=== PATIENT | female | born 1995 ===

== ENCOUNTER 2018-07-08 21:43 | Inpatient (IN) ==
[2018-07-08 22:19] LABS: Apearance,Urine CLEAR (Clear); Bacteria,Urine Occasional /HPF (Few); Bilirubin,Urine Negative (Negative); Blood, Urine Small mg/dL (Negative); Glucose,Urine (UA) Negative (Negative); Ketones,Urine Negative (Negative); Nitrite,Urine Negative (Negative); Protein,Urine Negative; RBC,Urine 3 /HPF (0-4); Squamous Epithelial Cell,Urine Occasional /HPF (0-10); Urine Color Straw (Yellow); Urine Specific Gravity 1.003 (1.001-1.035); Urine Urobilinogen < 2.0 EU/DL (0.2-1.0); WBC,Urine 21 /HPF (0-6)
[2018-07-08] MEDS ORDERED: ceFAZolin 2,000 MG in PREMIX 1 EACH IV ONE (22:33)
[2018-07-08] MEDS ORDERED: ALUMINUM/MAGNES/SIMETH MAX STR 30 ML UDCUP PO PRN (23:51)
[2018-07-09] MEDS: ONDANSETRON 4 MG/2 ML VIAL IV PRN (00:03)
[2018-07-09] MEDS: BUTORPHANOL 1 MG/ML VIAL IV PRN ×3 (00:03→21:31)
[2018-07-09] MEDS: LACTATED RINGERS 1,000 ML IV SCH ×2 (00:06→14:41)
[2018-07-09] MEDS ORDERED: ACETAMINOPHEN 325 MG TABLET PO PRN (14:32)
[2018-07-09] MEDS ORDERED: BETAMETH SODIUM PHOS/ACETATE 30 MG/5 ML VIAL IM SCH (16:30)
[2018-07-10] MEDS ORDERED: CITRIC ACID/SODIUM CITRATE 30 ML UDCUP PO ONE (07:12)
[2018-07-10] MEDS ORDERED: ceFAZolin 2,000 MG in PREMIX 1 EACH IV ONE (07:12)
[2018-07-10] MEDS ORDERED: FAMOTIDINE 20 MG/2 ML VIAL IV ONE (07:12)
[2018-07-10] MEDS ORDERED: OXYTOCIN/LR 20 UNIT/1,000 ML BAG IV ONE ×2 (07:18→09:08)
[2018-07-10] MEDS ORDERED: LACTATED RINGERS 1,000 ML IV SCH ×2 (07:30→09:30)
[2018-07-10] MEDS ORDERED: OXYTOCIN/LR 0 UNIT/0 ML BAG IV ONE (07:33)
[2018-07-10] MEDS ORDERED: OXYTOCIN 10 UNIT/ML VIAL ONE (07:34)
[2018-07-10] MEDS ORDERED: miSOPROStol 200 MCG TABLET ONE (07:34)
[2018-07-10 07:35] LABS: Basophils % 0.1 % (0.0-0.8); Eosinophils % 0.3 % (0.00-10.9); Hematocrit 36.6 VOL% (35.7-47.0); Hemoglobin 11.2 GM/DL (12.0-16.0); Immature Granulocytes % 0.7 %; Immature Granulocytes Absolute 0.05 #; Lymphocytes # 1.6 10*3/uL (1.4-4.0); Lymphocytes % 22.6 % (21.3-54.2); Mean Corpuscular HGB Conc 30.6 GM/DL (32-36); Mean Corpuscular Volume 79.6 FL (87-102); Mean Platelet Volume 11.4 FL (9.6-12.0); Monocytes % 2.2 % (1.7-12.7); NRBC # 0.02 10*3/uL; Neutrophils % 74.1 % (38.7-73.9); Platelet Count 264 T/CUMM (130-400); Red Cell Distribution Width 14.4 % (9.3-17.3); White Blood Count 7.2 T/CUMM (4-12)
[2018-07-10] MEDS ORDERED: CARBOPROST TROMETHAMINE 250 MCG/ML AMP IM ONE (07:35)
[2018-07-10] MEDS ORDERED: METHYLERGONOVINE 0.2 MG/1 ML AMP ONE (07:35)
[2018-07-10] MEDS ORDERED: PHENYLEPHRINE 1 MG/10 ML SYRINGE IV ONE (07:42)
[2018-07-10] MEDS ORDERED: BUPIVACAINE SPINAL 0.75% 2 ML AMP SPINAL ONE (07:43)
[2018-07-10] MEDS ORDERED: fentaNYL 100 MCG/2 ML VIAL ONE (07:43)
[2018-07-10] MEDS ORDERED: MORPHINE 10 MG/10 ML VIAL ONE (07:43)
[2018-07-10 08:18] LABS: Albumin 3.1 G/DL (3.4-5.0); Bilirubin,Total 0.6 MG/DL (0.2-1.0); Calcium 9.7 MG/DL (8.5-10.1); Osmolality,Calculated 272.8 MOS/KG (273-304); Total Protein 7.6 G/DL (6.4-8.3)
[2018-07-10 08:51] LABS: Hepatitis B Surface Ag Quant < 0.10 Index; Hepatitis B Surface Ag Result Negative (Negative)
[2018-07-10] MEDS ORDERED: MAGNESIUM HYDROXIDE SUSP 30 ML UDCUP PO PRN (09:08)
[2018-07-10] MEDS ORDERED: ACETAMINOPHEN 325 MG TABLET PO PRN (09:08)
[2018-07-10] MEDS ORDERED: RHO(D) IMMUNE GLOBULIN 300 MCG SYRINGE IM ONE (09:08)
[2018-07-10] MEDS ORDERED: ONDANSETRON 4 MG/2 ML VIAL IV PRN (09:08)
[2018-07-10] MEDS ORDERED: SIMETHICONE CHEW 80 MG TABLET PO PRN (09:08)
[2018-07-10] MEDS ORDERED: ceFAZolin 1,000 MG in SYRINGE 1 EACH IV SCH (09:30)
[2018-07-10 10:04] LABS: Apearance,Urine CLEAR (Clear); Bilirubin,Urine Negative (Negative); Blood, Urine Negative (Negative); Glucose,Urine (UA) Negative (Negative); Ketones,Urine 20 mg/dL (Negative); Mucus,Urine Occasional /LPF (Occasional); Nitrite,Urine Negative (Negative); Protein,Urine Negative; RBC,Urine 1 /HPF (0-4); Squamous Epithelial Cell,Urine Occasional /HPF (0-10); Urine Color Yellow (Yellow); Urine Urobilinogen < 2.0 EU/DL (0.2-1.0); WBC,Urine 1 /HPF (0-6)
[2018-07-10] MEDS ORDERED: HYDROmorphone 2 MG/1 ML VIAL IV PRN (11:02)
[2018-07-10] MEDS ORDERED: diphenhydrAMINE 50 MG/1 ML VIAL IV PRN (11:02)
[2018-07-10] MEDS ORDERED: hydrOXYzine HCL 25 MG/1 ML VIAL IM PRN (11:02)
[2018-07-10] MEDS: ONDANSETRON 4 MG/2 ML VIAL IV PRN (11:05)
[2018-07-10] MEDS ORDERED: BUPIVACAINE 0.5% 50 ML VIAL ONE (11:08)
[2018-07-10] MEDS ORDERED: EPINEPHrine 1 MG/ML VIAL ONE (11:08)
[2018-07-10] MEDS ORDERED: DEXAMETHASONE 4 MG/1 ML VIAL ONE (11:08)
[2018-07-10] MEDS ORDERED: PROMETHAZINE 25 MG/1 ML VIAL IM PRN (13:51)
[2018-07-10 16:09] LABS: Basophils % 0.1 % (0.0-0.8); Hematocrit 29.8 VOL% (35.7-47.0); Hemoglobin 9.2 GM/DL (12.0-16.0); Immature Granulocytes Absolute 0.18 #; Lymphocytes # 1.2 10*3/uL (1.4-4.0); Lymphocytes % 7.1 % (21.3-54.2); Mean Corpuscular HGB Conc 30.9 GM/DL (32-36); Mean Corpuscular Volume 78.6 FL (87-102); Mean Platelet Volume 11.7 FL (9.6-12.0); Monocytes % 4.1 % (1.7-12.7); NRBC # 0.02 10*3/uL; Neutrophils % 87.7 % (38.7-73.9); Platelet Count 222 T/CUMM (130-400); Red Blood Count 3.79 MC/CUMM (3.8-5.5); Red Cell Distribution Width 14.2 % (9.3-17.3); White Blood Count 17.2 T/CUMM (4-12)
[2018-07-10] MEDS: ceFAZolin 1,000 MG in SYRINGE 1 EACH IV SCH (16:26)
[2018-07-10] MEDS: IBUPROFEN 800 MG TABLET PO PRN (19:40)
[2018-07-10] MEDS: DOCUSATE SODIUM 100 MG CAPSULE PO SCH (20:54)
[2018-07-11] MEDS: ceFAZolin 1,000 MG in SYRINGE 1 EACH IV SCH (00:11)
[2018-07-11 05:16] LABS: Basophils % 0.2 % (0.0-0.8); Eosinophils % 0.2 % (0.00-10.9); Hemoglobin 8.4 GM/DL (12.0-16.0); Immature Granulocytes % 0.5 %; Immature Granulocytes Absolute 0.06 #; Lymphocytes # 2.1 10*3/uL (1.4-4.0); Lymphocytes % 16.5 % (21.3-54.2); Mean Corpuscular Volume 79.8 FL (87-102); Mean Platelet Volume 11.5 FL (9.6-12.0); Monocytes % 6.8 % (1.7-12.7); NRBC # 0.02 10*3/uL; Neutrophils % 75.8 % (38.7-73.9); Platelet Count 213 T/CUMM (130-400); Red Blood Count 3.51 MC/CUMM (3.8-5.5); Red Cell Distribution Width 14.3 % (9.3-17.3); White Blood Count 12.6 T/CUMM (4-12)
[2018-07-11] MEDS: IBUPROFEN 800 MG TABLET PO PRN ×3 (05:22→19:34)
[2018-07-11] MEDS: DOCUSATE SODIUM 100 MG CAPSULE PO SCH ×2 (08:32→21:18)
[2018-07-11] MEDS: MULTIVITAMIN (PRENATAL) TABLET PO SCH (08:32)
[2018-07-11] MEDS ORDERED: BISACODYL 10 MG SUPP RECTAL PRN (22:13)
[2018-07-12] MEDS: IBUPROFEN 800 MG TABLET PO PRN (05:13)
[2018-07-12 08:21] VITALS: BP 140/70
[2018-07-12] MEDS: MULTIVITAMIN (PRENATAL) TABLET PO SCH (10:49)
[2018-07-12] MEDS: DOCUSATE SODIUM 100 MG CAPSULE PO SCH (10:49)
[2018-07-12] MEDS ORDERED: MEASLES/MUMPS/RUBELLA VACCINE 0.5 ML VIAL SUBCUT ONE (11:49)
[2018-07-12] MEDS ORDERED: DIPH/TET/ACEL PERT BOOSTER VACCINE 0.5 ML VIAL IM ONE (12:01)
== END 2018-07-12 13:40 | disposition home or self-care (01) | DRG 540 ==
LOC: N.LDOUT 21:43 → N.LD 21:47 → N.OB 07-10 12:27
PROVIDERS: ADMIT Obstetrics & Gynecology; ATTEND Obstetrics & Gynecology
PROC: LDCSECT (ICD-10-PCS; 2018-07-10 08:30)